=== PATIENT | male | born 1980 | race Caucasian/White ===

== ENCOUNTER 2017-03-04 11:32 | Emergency (ER) | payer MEDICAID, OTHER ==
[~2017-03-04] VITALS: Ht 190.5 cm; Wt 147.5 kg
[2017-03-04 11:41] VITALS: BP 142/88
== END 2017-03-04 12:56 | disposition home or self-care (01) ==
LOC: ED 12:16
DX: J20.8 Acute bronchitis due to other specified organisms (principal); B97.89 Other viral agents as the cause of diseases classified elsewhere; F17.210 Nicotine dependence, cigarettes, uncomplicated
CPT/HCPCS: 71020; 99284

== ENCOUNTER 2018-11-17 10:01 | Emergency (ER) | payer BC, MEDICAID ==
[~2018-11-17] VITALS: Ht 193 cm; Wt 139.0 kg
[2018-11-17 10:06] VITALS: BP 157/100
--- NOTE | 2018-11-17 11:25 | NUR ---
Pt in bed, son at bedside. Denies any active needs or concerns.
== END 2018-11-17 11:55 | disposition home or self-care (01) ==
LOC: ED 11:28
DX: J20.8 Acute bronchitis due to other specified organisms (principal); B34.8 Other viral infections of unspecified site; F32.9 Major depressive disorder, single episode, unspecified
CPT/HCPCS: 71046; 93005; 99283